=== PATIENT | male | born 1975 | race Caucasian/White ===

== ENCOUNTER 2017-07-04 00:31 | Emergency (ER) | payer MEDICAID ==
--- NOTE | 2017-07-04 00:56 | Emergency Department Record ---
History of Present Illness - General Chief Complaint: Back Pain/Injury Stated Complaint: BACK PAIN Time Seen by Provider: 07/04/17 00:47 Source: Patient - History of Present Illness Initial Comments: The patient states that his low back pain began with a muscle "tweak" when he shut his car door around noon on . Throughout the day it worsened to painful sitting and standing waiting for his son at the bus. Tonight he is in so much pain in his "back muscles" that he is unable to bend or get out of his car without his son's help. He has been urinating and having BM's today without difficulty. He denies f,c,n,v,d,ap, or radiation down his legs. This happened once in the past as well. He has taken nothing for the pain. Onset/Timin -: Hour(s) Similar Symptoms Previously: Yes Place: Home Radiation: Left leg Severity: Severe Severity scale (1-10): 10 Quality: Sharp, Stabbing Consistency: Constant, Getting worse Improves With: Immobilization Worsens With: Movement, Walking Context: Turning/twisting Associated Symptoms: Difficulty walking Treatments Prior to Arrival: Other Treatment Prior to Arrival Comment:: oyster mushrooms - Related Data Previous Rx's Medication Instructions Recorded Diazepam [Valium] 5 mg PO TID #14 tab 07/04/17 Tramadol HCl [Ultram] 50 mg PO Q8H #14 tab 07/04/17 Allergies Allergy/AdvReac Type Severity Reaction Status Date / Time ciprofloxacin [From Cipro] AdvReac NAUSEA AND Verified 07/04/17 00:32 VOMITING Travel Screening - Travel/Exposure Within Last 30 Days Have you traveled within the last 30 days?: No - Travel Symptoms Symptom Screening: None Review of Systems Reviewed: No additional complaints except as noted below Constitutional: Reports: As per HPI. Denies: Chills, Fever, Malaise, Night sweats, Weakness, Weight change Eyes: Reports: As per HPI. Denies: Eye discharge, Eye pain, Photophobia, Vision change ENT: Reports: As per HPI. Denies: Congestion, Dental pain, Ear pain, Epistaxis , Hearing loss, Throat pain Respiratory: Reports: As per HPI. Denies: Cough, Dyspnea, Hemoptysis, Stridor, Wheezes Cardiovascular: Reports: As per HPI. Denies: Arrhythmia, Chest pain, Dyspnea on exertion, Edema, Murmurs, Orthopnea, Palpitations, Paroxysmal nocturnal dyspnea, Rheumatic Fever, Syncope Endocrine: Reports: As per HPI. Denies: Fatigue, Heat or cold intolerance, Polydipsia, Polyuria Gastrointestinal: Reports: As per HPI. Denies: Abdominal pain, Constipation, Diarrhea, Hematemesis, Hematochezia, Melena, Nausea, Vomiting Genitourinary: Reports: As per HPI. Denies: Dysuria, Frequency, Hematuria, Incontinence, Retention, Testicular pain, Testicular mass, Urgency Musculoskeletal: Reports: As per HPI. Denies: Arthralgia, Back pain, Gout, Joint swelling, Myalgia, Neck pain Skin: Reports: As per HPI. Denies: Bruising, Change in color, Change in hair/ nails, Lesions, Pruritus, Rash Neurological: Reports: As per HPI. Denies: Abnormal gait, Confusion, Headache, Numbness, Paresthesias, Seizure, Tingling, Tremors, Vertigo, Weakness Psychiatric: Reports: As per HPI. Denies: Anxiety, Auditory hallucinations, Depression, Homicidal thoughts, Suicidal thoughts, Visual hallucinations Hematological/Lymphatic: Reports: As per HPI. Denies: Anemia, Blood Clots, Easy bleeding, Easy bruising, Swollen glands Past Medical History - SOCIAL HISTORY Smoking Status: Light tobacco smoker (<10/day) Alcohol Use: None Drug Use: None - RESPIRATORY Hx Respiratory Disorders: No - CARDIOVASCULAR Hx Cardio Disorders: No - NEURO Hx Neuro Disorders: Yes Hx Headaches: Yes (migraines) - GI Hx GI Disorders: Yes Hx Reflux: Yes - Hx Genitourinary Disorders: No - ENDOCRINE Hx Endocrine Disorders: No - MUSCULOSKELETAL Hx Musculoskeletal Disorders: Yes - PSYCH Hx Psych Problems: No - HEMATOLOGY/ONCOLOGY Hx Hematology/Oncology Disorders: No Family Medical History Any Significant Family History?: No Family Hx Comment (NOT TO BE USED IN PLACE OF ITEMS BELOW): denies Physical Exam - General General Appearance: Alert, Oriented x3, Cooperative, No acute distress, Moderate distress (when attempting to move, sit or stand) - Head Head exam: Normal inspection - Eye Eye exam: Normal appearance, PERRL Pupils: Normal accommodation - ENT ENT exam: Normal exam, Mucous membranes moist, Normal external ear exam, Normal orophraynx, TM's normal bilaterally Ear exam: Normal external inspection. negative: External canal tenderness Nasal Exam: Normal inspection. negative: Discharge, Sinus tenderness Mouth exam: Normal external inspection, Tongue normal Teeth exam: Normal inspection. negative: Dental caries Throat exam: Normal inspection. negative: Tonsillar erythema, Tonsillar exudate - Neck Neck exam: Normal inspection, Full ROM. negative: Lymphadenopathy, Meningismus , Tenderness - Respiratory Respiratory exam: Normal lung sounds bilaterally. negative: Respiratory distress - Cardiovascular Cardiovascular Exam: Regular rate, Normal rhythm, Normal heart sounds - GI/Abdominal GI/Abdominal exam: Soft, Normal bowel sounds. negative: Tenderness - Rectal Rectal exam: Deferred - exam: Deferred - Extremities Extremities exam: Normal inspection, Full ROM, Normal capillary refill. negative: Calf tenderness, Pedal edema, Tenderness - Back Back exam: Reports: Normal inspection, Full ROM, Muscle spasm (palpation of his paraspinous muscles at the lumbar level reproduces the pain of chief complaint, left side greater than right side.), Paraspinal tenderness (lumbar muscle spasm) . Denies: Rash noted, Tenderness, Vertebral tenderness - Neurological Neurological exam: Abnormal gait (antalgic gait), Alert, CN II-XII intact, Oriented X3, Reflexes normal. negative: Motor sensory deficit - Psychiatric Psychiatric exam: Normal affect, Normal mood - Skin Skin exam: Dry, Intact, Normal color, Warm Course Vital Signs 07/04/17 00:34 Temperature 98 F Pulse Rate 76 Respiratory 20 Rate Blood Pressure 123/83 Pulse Ox 99 Medical Decision Making - Management Options MDM Management: No Additional Work-up Planned Disposition Disposition: Discharge Clinical Impression: Lumbar paraspinal muscle spasm Disposition: Home, Self-Care Condition: (1) Good Instructions: Low Back Strain (ED) Additional Instructions: No lifting bending twisting for 3-5 days. Take medications as directed for pain. Gentle stretches to low back twice daily after pain medication is working. Recheck with PCP next week. Prescriptions: Diazepam [Valium] 5 mg PO TID #14 tab Tramadol HCl [Ultram] 50 mg PO Q8H #14 tab Forms: Patient Portal Access Quality - Quality Measures Quality Measures: N/A - Blood Pressure Screening Does Patient Have Any of the Following: No Blood Pressure Classification: Pre-Hypertensive BP Reading Systolic Measurement: 123 Diastolic Measurement: 83 Screening for High Blood Pressure: < Normal BP, F/U Not Required > [G8783]
[2017-07-04] MEDS ORDERED: KETOROLAC 30 MG/ML VIAL IM ONE (00:58)
[2017-07-04] MEDS ORDERED: DIAZEPAM 5 MG TABLET PO ONE (01:02)
[2017-07-04] MEDS ORDERED: HYDROCODONE/APAP 5/325MG TABLET PO ONE (01:02)
== END 2017-07-04 01:39 | disposition home or self-care (01) ==
LOC: ER 00:31
DX: M62.830 Muscle spasm of back (principal)
CPT/HCPCS: 99283 ×2; 96372; J3490; J1885